=== PATIENT | female | born 1960 | race Two or more races ===

== ENCOUNTER 2019-12-08 21:30 | Emergency (ER) | payer OTHER ==
[~2019-12-08] VITALS: Ht 160 cm; Wt 68.0 kg
--- NOTE | 2019-12-08 22:01 | NUR ---
PATIENT RETURNED FROM CT.
[2019-12-08] MEDS ORDERED: ONDANSETRON HCL/PF 4 MG/2 ML VIAL ONE (22:36)
[2019-12-08 22:43] LABS: BASOPHILS # (AUTO) 0.1 /CMM (0.0-0.2); BASOPHILS % (AUTO) 0.7 % (0.0-2.0); HEMATOCRIT 39 % (33-45); HEMOGLOBIN 13.1 g/dL (11.5-14.8); LYMPHOCYTES # (AUTO) 1.5 /CMM (0.8-4.8); LYMPHOCYTES % (AUTO) 15.5 % (20.0-44.0); MEAN CORPUSCULAR HGB CONC 34 g/dl (31.0-36.0); MEAN CORPUSCULAR VOLUME 92 fL (82-100); MONOCYTES # (AUTO) 0.2 /CMM (0.1-1.30); MONOCYTES % (AUTO) 2.5 % (2.0-12.0); NEUTROPHILS # (AUTO) 7.8 /CMM (1.8-8.9); NEUTROPHILS % (AUTO) 81.3 % (43.0-81.0); PLATELET COUNT (AUTO) 311 /CMM (150-450); RED BLOOD CELL COUNT(AUTO) 4.26 MIL/uL (4.0-5.2); WHITE BLOOD COUNT (AUTO) 9.6 K/uL (4.3-11.0)
--- NOTE | 2019-12-08 22:48 | NUR ---
PATIENT TAKEN TO CT.
[2019-12-08 22:50] LABS: CALCIUM, SERUM 9.3 mg/dL (8.5-10.1); CARBON DIOXIDE 28 mmol/L (21-32); CHLORIDE 101 mmol/L (98-107); GLUCOSE 155 mg/dL (74-106); POTASSIUM 3.9 mmol/L (3.5-5.1); SODIUM SERUM 140 mmol/L (136-145); UREA NITROGEN, BLOOD 14 mg/dL (7-18)
[2019-12-08] MEDS ORDERED: MECLIZINE HCL 25 MG TABLET ONE (22:56)
[2019-12-08] MEDS ORDERED: MECLIZINE HCL 12.5 MG TABLET PO ONE (23:00)
[2019-12-08] MEDS ORDERED: ONDANSETRON HCL/PF 4 MG/2 ML VIAL IVP ONE (23:00)
[2019-12-08] MEDS ORDERED: IV NS 0.9% 500 ML BAG IV ONE (23:00)
--- NOTE | 2019-12-08 23:01 | NUR ---
BIB DAUGHTER FROM HOME FOR N/V SINCE EARLIER TODAY. DENIES ABDOMINAL PAIN AND DYSURIA. PATIENT C/O OF DIZZINESS. AAOX4. NO SOB. BREATHING EVENLY AND UNLABORED ON ROOM AIR. CONNECTED TO MONITOR.
[2019-12-08] MEDS ORDERED: AZITHROMYCIN 500 MG VIAL ONE (23:03)
[2019-12-08] MEDS ORDERED: DILTIAZEM HCL 50 MG IV ONE (23:08)
[2019-12-08] MEDS ORDERED: MECLIZINE HCL 12.5 MG TABLET ONE (23:11)
[2019-12-08 23:56] VITALS: BP 131/79
--- NOTE | 2019-12-08 23:56 | NUR ---
IV removed. Catheter intact and site benign. Pressure and 4x4 applied to site. No bleeding noted.
--- NOTE | 2019-12-08 23:56 | NUR ---
Patient discharged to home in stable condition. Written and verbal after care instructions given. Patient verbalizes understanding of instruction.
== END 2019-12-08 23:56 | disposition home or self-care (01) ==
LOC: ER 21:39
DX: R42 Dizziness and giddiness (principal)
CPT/HCPCS: 36415; 70450; 80048; 84484; 85025; 93005; 96374; 99285; J2405; J3490; J7040; J8597; J0456; J7060